=== PATIENT | male | born 1980 | race Caucasian/White ===

== ENCOUNTER 2018-07-15 02:18 | Emergency (ER) | payer OTHER ==
[2018-07-15] MEDS ORDERED: LIDOCAINE 1% INJ-PF (10 MG/ML) 30 ML SDV INJ ONE (03:31)
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
[2018-07-15 04:58] VITALS: BP 131/70
== END 2018-07-15 04:57 | disposition home or self-care (01) ==
LOC: ER 02:18
PROC: 0HQ1XZZ Repair Face Skin, External Approach (ICD-10-PCS; principal; 2018-07-15)
DX: S01.81XA Laceration without foreign body of other part of head, initial encounter (principal); Y04.0XXA Assault by unarmed brawl or fight, initial encounter
CPT/HCPCS: 99282; 12013; J3490

== ENCOUNTER 2019-06-29 21:35 | Emergency (ER) | payer OTHER ==
[2019-06-29] MEDS ORDERED: HYDROCODONE/ACETAMINOPHEN 10-325 MG TABLET PO ONE (23:26)
[2019-06-29] MEDS ORDERED: DIPH/PERTUSS(ACELL)/TETANUS VAC/PF 0.5 ML SYR (>=10YO) IM ONE (23:26)
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
[2019-06-30] MEDS ORDERED: LIDOCAINE 1% INJ-PF (10 MG/ML) 30 ML SDV INJ ONE (00:38)
[2019-06-30] MEDS ORDERED: LIDOCAINE 1% INJ (10 MG/ML) 10 ML MDV INJ ONE (00:39)
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
[2019-06-30 01:40] VITALS: BP 143/72
== END 2019-06-30 01:37 | disposition home or self-care (01) ==
LOC: ER 21:35
DX: S51.812A Laceration without foreign body of left forearm, initial encounter (principal); W55.32XA Struck by other hoof stock, initial encounter; Y93.89 Activity, other specified; Z23 Encounter for immunization; Z91.018 Allergy to other foods
CPT/HCPCS: 90715; 12002; J3490; 90471; 99282

== ENCOUNTER → 2020-10-09 | Outpatient (CLI) | payer OTHER ==
[2020-10-11 13:09] LABS: TESTOSTERONE FREE (DIRECT) 8.6 pg/mL (8.7-25.1)
== END ==
LOC: OD 11:39
PROVIDERS: ATTEND Family Medicine
DX: R53.83 Other fatigue (principal); R68.82 Decreased libido
CPT/HCPCS: 36415; 84402; 84403